=== PATIENT | male | born 1950 | race Caucasian/White ===

== ENCOUNTER 2019-12-03 07:52 | Day surgery (SDC) | payer BC, MEDICARE ==
[~2019-12-03] VITALS: Ht 177.8 cm; Wt 80.3 kg
[~2019-12-03 07:52] MED LIST: ACETAMINOPHEN 650 MG/20.3 ML UDC PO PRN; BISACODYL 10 MG SUPP PR PRN; DIPHENHYDRAMINE 50 MG CAPSULE PO PRN; EPINEPHRINE 1 MG/ML, 1ML ONE; FENTANYL PF 250 MCG/5ML ONE; HYDROcodone/APAP 5/325 TABLET PO PRN; IMIQUIMOD TP; KETOROLAC 60 MG/2 ML ONE; LISI-170 PO; MAGNESIUM HYDROXIDE 8%, 30ML UDC PO PRN; MIDAZOLAM 1 MG/ML, 2ML ONE; ONDANSETRON 2MG/ML, 2ML IV PRN; ONDANSETRON 4 MG TABLET PO PRN; OXYcodone IR 5MG TABLET PO PRN; RIVA20TA PO; ROPIvacaine/PF 0.5%, 30 ML ONE; SENNA/DOCUSATE TABLET PO PRN; SODIUM CHLORIDE 0.9% 50 ML ONE; TRANEXAMIC ACID 100 MG/ML, 10ML ONE; VANCOMYCIN 1,000 MG ONE; ZOLPIDEM 5MG TABLET PO PRN
[2019-12-03] MEDS ORDERED: LACTATED RINGERS 1,000 ML IV SCH (08:35)
[2019-12-03 08:38] VITALS: BP 153/95
[2019-12-03] MEDS ORDERED: DOCUSATE 100 MG CAPSULE PO SCH (09:00)
[2019-12-03] MEDS ORDERED: GABAPENTIN 300 MG CAPSULE PO ONE (09:00)
[2019-12-03] MEDS ORDERED: ACETAMINOPHEN 500 MG TABLET PO ONE (09:00)
[2019-12-03] MEDS ORDERED: LISINOPRIL 20 MG TABLET PO SCH (09:00)
[2019-12-03] MEDS ORDERED: ACETAMINOPHEN 500 MG TABLET ONE (09:07)
[2019-12-03] MEDS ORDERED: GABAPENTIN 300 MG CAPSULE ONE (09:08)
[2019-12-03] MEDS ORDERED: DEXAMETHASONE 4 MG/ML, 1ML ONE (09:10)
[2019-12-03] MEDS ORDERED: PROPOFOL 10 MG/ML, 20ML ONE (09:10)
[2019-12-03] MEDS ORDERED: SUCCINYLCHOLINE 20 MG/ML, 10ML ONE (09:10)
[2019-12-03] MEDS ORDERED: CEFAZOLIN 1,000 MG ONE (09:10)
[2019-12-03] MEDS ORDERED: ROCURONIUM 10MG/ML,5ML ONE (09:10)
[2019-12-03] MEDS ORDERED: ONDANSETRON 2MG/ML, 2ML ONE (09:10)
[2019-12-03] MEDS ORDERED: hydrALAzine 20 MG/ML, 1ML IV PRN (09:30)
[2019-12-03] MEDS ORDERED: MEPERIDINE/PF 25MG/0.5ML IVPush PRN (09:30)
[2019-12-03] MEDS ORDERED: ONDANSETRON 2MG/ML, 2ML IVPush PRN (09:30)
[2019-12-03] MEDS ORDERED: PROMETHAZINE 25 MG/ML, 1ML IV PRN (09:30)
[2019-12-03] MEDS ORDERED: OXYcodone 5 MG/5 ML ORAL.SOL UDC PO PRN (09:30)
[2019-12-03] MEDS ORDERED: METOCLOPRAMIDE 5 MG/ML, 2ML IV PRN (09:30)
[2019-12-03] MEDS ORDERED: HYDROmorphone 1 MG/ML, 1ML INJ IV PRN (09:30)
[2019-12-03] MEDS ORDERED: DIAZEPAM 5 MG/ML, 2ML IV PRN ×2 (09:30)
[2019-12-03] MEDS ORDERED: KETOROLAC 30 MG/1 ML IV PRN (09:30)
[2019-12-03] MEDS ORDERED: LABETALOL 5MG/ML, 20ML IV PRN (09:30)
[2019-12-03] MEDS ORDERED: ALBUTEROL SULFATE 2.5 MG/3 ML NPPB PRN (09:30)
[2019-12-03 09:31] LABS: BASOPHILS # (AUTO) 0.03 x10^3/uL (0-0.1); BASOPHILS % (AUTO) 1 % (0-1); EOSINOPHILS # (AUTO) 0.05 x10^3/uL (0-0.4); EOSINOPHILS % (AUTO) 1 % (1-7); LYMPHOCYTES # (AUTO) 1.02 x10^3/uL (1-3.4); LYMPHOCYTES % (AUTO) 29 % (22-44); MD NO; MEAN CORPUSCULAR HEMOGLOBIN 34.2 pg (27.5-34.5); MEAN CORPUSCULAR HGB CONC 33.7 g/dL (33.2-36.2); MEAN CORPUSCULAR VOLUME 101.5 fL (81-97); MEAN PLATELET VOLUME 7.5 fL (7.4-10.4); MONOCYTES # (AUTO) 0.41 x10^3/uL (0.2-0.8); MONOCYTES % (AUTO) 12 % (2-9); NEUTROPHILS # (AUTO) 2.03 x10^3/uL (1.8-6.8); NEUTROPHILS % (AUTO) 58 % (42-75); PLATELET COUNT 240 x10^3/uL (130-400); RED BLOOD COUNT 4.85 x10^6/uL (4.38-5.82); RED CELL DISTRIBUTION WIDTH 13.3 % (9.4-14.8)
[2019-12-03 09:36] LABS: INTERNATIONAL NORMALIZED RATIO 0.95 (0.93-1.1); PROTHROMBIN TIME 10.1 Seconds (9.6-11.5)
[2019-12-03 10:31] LABS: ALANINE AMINOTRANSFERASE 47 U/L (12-78); ALBUMIN 3.7 g/dL (3.4-5.0); ANION GAP 6 mmol/L (5-15); CALCIUM 8.9 mg/dL (8.5-10.1); CHLORIDE 112 mmol/L (98-107)
[2019-12-03 10:34] LABS: ALKALINE PHOSPHATASE 100 U/L (45-117); BILIRUBIN,TOTAL 0.6 mg/dL (0.2-1.0); CREATININE 0.94 mg/dL (0.7-1.3); TOTAL PROTEIN 7.4 g/dL (6.4-8.2)
[2019-12-03] MEDS ORDERED: FENTANYL PF 100 MCG/2ML ONE (10:34)
[2019-12-03] MEDS ORDERED: HYDROmorphone 2 MG/ML, 1ML ONE (10:35)
[2019-12-03] MEDS: FENTANYL PF 100 MCG/2ML IV PRN ×2 (10:39→10:44)
[2019-12-03] MEDS ORDERED: METHOCARBAMOL 1,000 MG in DEXTROSE 5% 100 ML IV STA (10:48)
[2019-12-03] MEDS ORDERED: NS + 20MEQ KCL 1,000 ML IV SCH (12:27)
[2019-12-03] MEDS ORDERED: OXYC5CAP2 PO (16:54)
[2019-12-03] MEDS ORDERED: TRAM50TA2 PO (16:57)
[2019-12-03] MEDS ORDERED: CEFAZOLIN PMX 2GM/50ML 50 ML IVPB SCH (17:00)
[2019-12-03] MEDS ORDERED: ASPIRIN 81 MG TABLET EC PO SCH (18:00)
[2019-12-04] MEDS ORDERED: DEXAMETHASONE 4 MG/ML, 1ML IVPush SCH (06:00)
== END 2019-12-03 17:22 | disposition home or self-care (01) ==
LOC: OUT 07:52 → 4NE 12:17 → DCLOUNGE 17:20 → OUT 17:22
PROVIDERS: ATTEND Orthopaedic Surgery
DX: M16.12 Unilateral primary osteoarthritis, left hip (principal); Z86.718 Personal history of other venous thrombosis and embolism; Z79.01 Long term (current) use of anticoagulants; Z79.899 Other long term (current) drug therapy
CPT/HCPCS: 27130; 36415; 72170; 73523; 80053; 83036; 85025; 85610; 85730; 87081; 93005; 97161; C1713; C1776; J0171; J0330; J0690; J1100; J1170; J1885; J2250; J2405; J2704; J2795; J2800; J3010; J3370; J7120; 76000